=== PATIENT | female | born 1990 | race Hispanic/Latino ===

== ENCOUNTER 2022-11-12 14:16 | Emergency (ER) | payer OTHER, SELFPAY ==
[2022-11-12 15:28] LABS: SARS-CoV-2 NAA Rapid Test Not Detected (NotDetected)
== END 2022-11-12 16:00 | disposition home or self-care (01) ==
LOC: CSHERS 14:16
DX: O99.513 Diseases of the respiratory system complicating pregnancy, third trimester (principal); J01.90 Acute sinusitis, unspecified; Z3A.30 30 weeks gestation of pregnancy; Z20.822 Contact with and (suspected) exposure to COVID-19; I10 Essential (primary) hypertension; E03.9 Hypothyroidism, unspecified
CPT/HCPCS: 99283

== ENCOUNTER 2022-12-09 19:48 | Day surgery (SDC) | payer MEDICAID, OTHER ==
[2022-12-09] MEDS ORDERED: hydrALAZINE 20 MG/ML VIAL SLOW IVP PRN (20:27)
[2022-12-09] MEDS ORDERED: Acetaminophen 500 MG TAB PO SCH (20:30)
[2022-12-09 20:32] VITALS: BMI 41.8
[2022-12-09 20:42] LABS: Bilirubin Neg (Negative); Blood, Urine 10 (Negative); Clarity Clear (Clear); Glucose, Urine (Dipstick) Normal (Negative); Ketone, Urine Negative (Negative); Leukocyte Negative (Negative); Nitrite Negative (Negative); Protein, Urine (Dipstick) 15 mg/dl (Neg-Trace); Specific Gravity, Urine 1.025 (1.005-1.030); Urobilinogen Normal mg/dL (Less than 2)
[2022-12-09 21:15] LABS: Bacteria/HPF None Seen HPF (None Seen); CAUTI Indications for Culture Pregnancy; RBC/HPF 0-3 HPF (0-3); Squamous Epithelial 0-3 HPF (0-3); WBC/HPF 0-3 HPF (0-3)
[2022-12-09 21:16] LABS: Calcium Oxalate Crystals Rare HPF (None Seen)
[2022-12-09 21:19] LABS: Urine Culture Reflex Yes Yes
== END 2022-12-09 21:55 | disposition home or self-care (01) ==
LOC: CSHLD/OP 19:48
PROVIDERS: ATTEND Family Medicine
DX: O47.03 False labor before 37 completed weeks of gestation, third trimester (principal); O99.891 Other specified diseases and conditions complicating pregnancy; R51.9 Headache, unspecified; O23.593 Infection of other part of genital tract in pregnancy, third trimester; R35.0 Frequency of micturition; O10.913 Unspecified pre-existing hypertension complicating pregnancy, third trimester; Z79.899 Other long term (current) drug therapy; Z3A.34 34 weeks gestation of pregnancy
CPT/HCPCS: 81001; 87086

== ENCOUNTER 2022-12-11 15:13 | Day surgery (SDC) | payer OTHER ==
[2022-12-11 15:33] VITALS: BMI 41.8
[2022-12-11] MEDS ORDERED: hydrALAZINE 20 MG/ML VIAL SLOW IVP PRN (16:04)
[2022-12-11] MEDS ORDERED: Lactated Ringer's 1,000 ML IV SCH (16:15)
[2022-12-11] MEDS ORDERED: Acetaminophen 500 MG TAB PO SCH (18:00)
== END 2022-12-11 19:40 | disposition home or self-care (01) ==
LOC: CSHLD/OP 15:13
PROVIDERS: ATTEND Family Medicine
DX: O41.8X30 Other specified disorders of amniotic fluid and membranes, third trimester, not applicable or unspecified (principal); O16.3 Unspecified maternal hypertension, third trimester; Z3A.34 34 weeks gestation of pregnancy; Z79.82 Long term (current) use of aspirin
CPT/HCPCS: 76819; 96360; 99282

== ENCOUNTER 2024-04-30 18:32 | Emergency (ER) | payer MEDICAID, OTHER, SELFPAY ==
[2024-04-30 20:19] LABS: #Basophils 0.04 10x3/uL (0.0-0.2); #Eosinophils 0.05 10x3/uL (0.0-0.5); %Basophils 0.5 % (0.0-2.0); %Eosinophils 0.6 % (0.0-6.0); %Lymphocytes 23.8 % (18.0-47.0); %Monocytes 5.8 % (0.0-10.0); %Neutrophils 69.1 % (40.0-75.0); Hematocrit 36.8 % (34.9-44.5); Hemoglobin 12.4 g/dL (12.0-15.5); Mean Corpuscular HGB CONC 33.7 g/dL (32.0-36.0); Mean Corpuscular Hemoglobin 28.9 pg (27.0-33.0); Mean Corpuscular Volume 85.8 fL (81.6-98.3); Platelet Count 336 10x3/uL (150-450); RBC Distribution Width 13.2 % (11.5-14.5); Red Blood Cell (RBC) Count 4.29 10x6/uL (3.90-5.03); White Blood Cell (WBC) Count 8.7 10x3/uL (3.5-10.5)
[2024-04-30 20:29] LABS: BHCG - Serum Negative (NEGATIVE); Pregs Control Background? CLEAR/WHITE (CLR/WHITE); Pregs Control Bar Appear? YES (CONTROL BAR)
[2024-04-30 20:30] LABS: ALT (SGPT) 41 U/L (8-55); AST (SGOT) 25 U/L (5-34); Albumin 3.8 g/dL (3.5-5.0); Alkaline Phosphatase 142 U/L (40-110); Anion Gap 14 mmol/L (10-20); BUN (Urea Nitrogen) 12 mg/dL (7.0-18.7); Bilirubin, Total 0.3 mg/dL (0.2-1.2); Calc. Creatinine Clearance 0 mL/min (70-130); Calcium 9.1 mg/dL (7.8-10.44); Carbon Dioxide 22 mmol/L (22-29); Chloride 107 mmol/L (98-107); Estimated GFR 93; Glucose 121 mg/dL (70-105); Magnesium 2.1 mg/dL (1.6-2.6); Potassium 3.6 mmol/L (3.5-5.1); Protein, Total 7.8 g/dL (6.0-8.3); Sodium 139 mmol/L (136-145)
== END 2024-04-30 21:05 | disposition home or self-care (01) ==
LOC: CSHERS 18:32
DX: R20.2 Paresthesia of skin (principal); I10 Essential (primary) hypertension
CPT/HCPCS: 36415; 80053; 83735; 84443; 84703; 85025; 99284